=== PATIENT | female | born 1985 | race Caucasian/White ===

== ENCOUNTER 2016-12-20 09:31 | Emergency (ER) | payer OTHER ==
[~2016-12-20] VITALS: Ht 154.9 cm; Wt 82.4 kg
[~2016-12-20 09:31] MED LIST: ACID CONTROL75 MG PO; KEFLEX500 MG PO; PRENATAL VITAM1 EAC1 PO
[2016-12-20 10:16] LABS: HEMATOCRIT 40.6 % (36.0-46.0); MCH 29.3 PG (29.0-34.0); MCHC 34.7 G/DL (30.0-36.0); MCV 84.4 FL (83-99); MEAN PLAT.VOLUME 11.6 uM^3 (9.5-12.4); PLATELET COUNT 272 K/uL (156-360); RBC DIS.WIDTH-CV 12.5 % (11.8-14.6); RBC DIS.WIDTH-SD 37.7 % (39-53); RED BLOOD COUNT 4.81 M/uL (3.80-5.20); WHITE BLOOD COUNT 8.6 K/uL (4.1-10.2)
[2016-12-20 10:25] LABS: CHLORIDE 105 mEq/L (99-109); SODIUM 137 mEq/L (136-147)
[2016-12-20 10:27] LABS: GLUCOSE 95 mg/dL (70-99)
[2016-12-20 10:29] LABS: ANION GAP 10 MEQ/L (2-14); TOTAL BILIRUBIN 0.6 mg/dL (0.0-1.0)
[2016-12-20 10:31] LABS: ALKALINE PHOSPHATASE 60 IU/L (3-129); GFR ESTIMATE (CALCULATED) > 59 mL/min/
[2016-12-20 10:32] LABS: UREA NITROGEN (BUN) 7 mg/dL (9-23)
[2016-12-20 10:48] LABS: ADD MIUA? YES; BILIRUBIN NEGATIVE; BLOOD NEGATIVE; COLOR YELLOW ((YELLOW)); GLUCOSE (STRIP) NEGATIVE; KETONES 20; LEUKOCYTES SMALL; NITRITE NEGATIVE; PROTEIN (STRIP) NEGATIVE; SPECIFIC GRAVITY 1.015 (1.000-1.030); UROBILINOGEN 0.2 MG/DL (0.2-1.0)
[2016-12-20 11:01] LABS: QUANTITATIVE HCG 76379.3 MIU/ML
[2016-12-20 11:01] LABS: BACTERIA RARE /HPF; CALCIUM OXALATE CRYSTALS 1+ /HPF; EPITHELIAL CELLS 2+ /HPF; MUCUS TRACE /LPF; RED BLOOD CELLS 0-5 /HPF (0-5); UCUL ADDED? NO; WHITE BLOOD CELLS 0-5 /HPF (0-5)
[2016-12-20] MEDS ORDERED: ZOFRAN ODT4 MG PO (11:58)
[2016-12-20 12:13] VITALS: BP 134/92
== END 2016-12-20 12:14 | disposition home or self-care (01) ==
LOC: EME 09:31
DX: O21.9 Vomiting of pregnancy, unspecified (principal); R51 Headache; Z3A.10 10 weeks gestation of pregnancy
CPT/HCPCS: 80053; 81003; 84702; 85027; 99281; 99284; J2405; J7030

== ENCOUNTER 2017-07-02 12:17 | Outpatient (CLI) | payer OTHER ==
[~2017-07-02 12:17] MED LIST changes: +ZOFRAN ODT4 MG PO
[2017-07-02 12:45] VITALS: BP 114/70
[2017-07-02] MEDS ORDERED: PRILOSEC OTC20 MG PO (12:54)
[2017-07-02] MEDS ORDERED: LO-DOSE ASPIRIN81 M1 PO (12:54)
[2017-07-02 13:24] VITALS: BP 106/63
[2017-07-02 13:42] LABS: UR CREATININE CONCENTRATION 263.7 MG/DL
[2017-07-02 14:07] LABS: EOSINOPHIL (%) 0.4 % (0-5); HEMATOCRIT 35.8 % (36.0-46.0); IMMATURE GRANULOCYTE (%) 0.4 % (0.0-0.7); INSTRUMENT ABS NEUTROPHIL CT 6.9 K/uL; LYMPHOCYTE COUNT 1.4 K/uL (1.0-2.8); MCH 28.3 PG (29.0-34.0); MCHC 33.5 G/DL (30.0-36.0); MCV 84.4 FL (83-99); MEAN PLAT.VOLUME 12.8 uM^3 (9.5-12.4); MONOCYTE (%) 6.7 % (3-12); MONOCYTE COUNT 0.6 K/uL (0-0.8); NEUTROPHIL (%) 76.3 % (45-76); NEUTROPHIL COUNT 6.9 K/uL (1.8-6.4); PLATELET COUNT 248 K/uL (156-360); RBC DIS.WIDTH-CV 12.8 % (11.8-14.6); RBC DIS.WIDTH-SD 39.1 % (39-53); RED BLOOD COUNT 4.24 M/uL (3.80-5.20)
[2017-07-02 14:25] LABS: ALKALINE PHOSPHATASE 89 IU/L (3-129); ANION GAP 9 MEQ/L (2-14); CHLORIDE 107 MEQ/L (99-109); GFR ESTIMATE (CALCULATED) > 59 mL/min/; GLUCOSE 80 mg/dL (70-99); POTASSIUM 3.8 MEQ/L (3.7-5.4); SAMPLE HEMOLYSIS CHECK 0; SAMPLE ICTERIC CHECK 0; SAMPLE LIPEMIA CHECK 0; SODIUM 138 MEQ/L (136-147); TOTAL BILIRUBIN 0.3 MG/DL (0.0-1.0); UREA NITROGEN (BUN) 6 mg/dL (9-23)
== END 2017-07-02 15:25 | disposition home or self-care (01) ==
LOC: LDRP-OP 12:17 → 2WEST 12:18 → LDRP-OP 08-18 09:42
PROVIDERS: Advanced Practice Midwife
DX: O16.3 Unspecified maternal hypertension, third trimester (principal); Z3A.37 37 weeks gestation of pregnancy; R11.0 Nausea
CPT/HCPCS: 59025; 80053; 82570; 84156; 85025; G0378

== ENCOUNTER 2017-07-15 07:55 | Inpatient (IN) | payer OTHER ==
[~2017-07-15] VITALS: Ht 154.9 cm; Wt 87.0 kg
[2017-07-15] VITALS (13 sets, daily range): BP systolic 111–144; BP diastolic 57–89
[~2017-07-15 07:55] MED LIST changes: +LO-DOSE ASPIRIN81 M1 PO; +PRILOSEC OTC20 MG PO
[2017-07-15 10:26] LABS: EOSINOPHIL (%) 0.8 % (0-5); EOSINOPHIL COUNT 0.1 K/uL (0-0.3); HEMATOCRIT 35.6 % (36.0-46.0); IMMATURE GRANULOCYTE (%) 0.6 % (0.0-0.7); IMMATURE GRANULOCYTE COUNT 0.1 K/uL; INSTRUMENT ABS NEUTROPHIL CT 6.6 K/uL; LYMPHOCYTE COUNT 1.7 K/uL (1.0-2.8); MCH 28.3 PG (29.0-34.0); MCHC 33.4 G/DL (30.0-36.0); MCV 84.8 FL (83-99); MEAN PLAT.VOLUME 12.8 uM^3 (9.5-12.4); MONOCYTE (%) 5.9 % (3-12); MONOCYTE COUNT 0.5 K/uL (0-0.8); NEUTROPHIL (%) 73.2 % (45-76); NEUTROPHIL COUNT 6.6 K/uL (1.8-6.4); PLATELET COUNT 203 K/uL (156-360); RBC DIS.WIDTH-SD 39.5 % (39-53); WHITE BLOOD COUNT 9.1 K/uL (4.1-10.2)
[2017-07-16 07:11] LABS: EOSINOPHIL (%) 0.6 % (0-5); EOSINOPHIL COUNT 0.1 K/uL (0-0.3); HEMATOCRIT 30.5 % (36.0-46.0); IMMATURE GRANULOCYTE (%) 0.5 % (0.0-0.7); IMMATURE GRANULOCYTE COUNT 0.1 K/uL; LYMPHOCYTE COUNT 2.6 K/uL (1.0-2.8); MCH 28.1 PG (29.0-34.0); MCHC 32.8 G/DL (30.0-36.0); MCV 85.7 FL (83-99); NEUTROPHIL (%) 72.8 % (45-76); PLATELET COUNT 189 K/uL (156-360); RED BLOOD COUNT 3.56 M/uL (3.80-5.20); WHITE BLOOD COUNT 13.8 K/uL (4.1-10.2)
[2017-07-16 07:40] VITALS: BP 137/79
[2017-07-16 14:40] VITALS: BP 134/79
[2017-07-17 07:29] VITALS: BP 134/87
[2017-07-17] MEDS ORDERED: IBUPROFEN800 MG PO (11:50)
== END 2017-07-17 13:39 | disposition home or self-care (01) | DRG 775 ==
LOC: LDRP-OP 07:55 → 2WEST 07:56 → LDRP-OP 08-18 18:36
PROVIDERS: Advanced Practice Midwife
DX: O70.0 First degree perineal laceration during delivery (principal); O99.02 Anemia complicating childbirth; D62 Acute posthemorrhagic anemia; O32.6XX0 Maternal care for compound presentation, not applicable or unspecified; O26.893 Other specified pregnancy related conditions, third trimester; O99.613 Diseases of the digestive system complicating pregnancy, third trimester; R12 Heartburn; O99.214 Obesity complicating childbirth; E66.3 Overweight; Z68.32 Body mass index [BMI] 32.0-32.9, adult; Z3A.39 39 weeks gestation of pregnancy; Z37.0 Single live birth
CPT/HCPCS: 85025; C1755; J7120